=== PATIENT | female | born 1960 | race Caucasian/White ===

== ENCOUNTER 2016-12-29 07:44 | Emergency (ER) | payer BC ==
[2016-12-29 08:04] VITALS: BP 162/88
[2016-12-29] MEDS ORDERED: Naproxen TAB* 250 MG PO ONE (08:21)
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
== END 2016-12-29 08:32 | disposition home or self-care (01) ==
LOC: UCEAST 07:44
DX: S16.1XXA Strain of muscle, fascia and tendon at neck level, initial encounter (principal); R51 Headache; V27.5XXA Motorcycle passenger injured in collision with fixed or stationary object in traffic accident, initial encounter
CPT/HCPCS: 99212; A9270-GY; G0463

== ENCOUNTER 2017-03-21 21:17 | Emergency (ER) | payer BC ==
[2017-03-21] MEDS ORDERED: oxyCODONE/Acetamin 5/325 MG* TAB PO ONE (22:35)
[2017-03-21 23:32] LABS: Hemoglobin 13.5 g/dl (12.0-16.0); Red Blood Count 4.63 10^6/ul (4.0-5.4)
[2017-03-21 23:33] LABS: Hematocrit 41 % (35-47); Mean Corpuscular HGB Conc 33 g/dl (31-36); Mean Corpuscular Hemoglobin 29 pg (27-31); Mean Corpuscular Volume 87 fL (80-97); Mean Platelet Volume 9 um3 (7.4-10.4); Red Cell Distribution Width 13 % (10.5-15)
[2017-03-21 23:46] LABS: Albumin 4.4 g/dL (3.2-5.2); BUN/Creatinine Ratio 9.9 (8-20); Calcium 8.9 mg/dL (8.6-10.3); EGFR African American 110.3 (>60); EGFR Non-African American 85.8 (>60); Globulin 2.9 g/dL (2-4); Potassium 3.5 mmol/L (3.5-5.0); Total Bilirubin 0.4 mg/dL (0.2-1.0); Total Protein 7.3 g/dL (6.4-8.9)
[2017-03-21] MEDS ORDERED: Iohexol 300* (CONTRAST) 10 ML SDV IV ONE (23:58)
--- NOTE | 2017-03-22 01:12 | ED ---
Raza Bowden Alfonso, scribed for Michelet Ellington on 03/21/17 at 2234 . Complex/Multi-Sys Presentation - HPI Summary HPI Summary: This patient is a 56 year old F presenting to [facility] accompanied by family with a chief complaint of right sided facial swelling worsening since 5 days ago. She thinks it is an infection. The CC is described as pruritic. The patient rates the pain 8/10 in severity. Symptoms aggravated and alleviated by nothing. Patient reports bug bites (at her legs), and a headache. She reports she was recently started on a course of Augmentin. She denies any PMHx. - History Of Current Complaint Chief Complaint: EDGeneral Time Seen by Provider: 03/21/17 22:22 Hx Obtained From: Patient Onset/Duration: Sudden Onset, Lasting Days - 5, Worse Since Timing: Constant Severity Currently: Moderate Severity Initially: Moderate Aggravating Factor(s): Nothing Alleviating Factor(s): Nothing Associated Signs And Symptoms: Positive: Other - Patient reports bug bites (at her legs), and a headache. - Allergies/Home Medications Allergies/Adverse Reactions: Allergies Allergy/AdvReac Type Severity Reaction Status Date / Time environmental Allergy Severe sinus Uncoded 03/21/17 21:23 PMH/Surg Hx/FS Hx/Imm Hx Endocrine/Hematology History: Denies: Hx Diabetes, Hx Thyroid Disease Cardiovascular History: Denies: Hx Hypertension, Hx Pacemaker/ICD Respiratory History: Denies: Hx Asthma, Hx Chronic Obstructive Pulmonary Disease (COPD) GI History: Denies: Hx Ulcer Sensory History: Denies: Hx Hearing Aid Psychiatric History: Denies: Hx Panic Disorder - Cancer History Hx Chemotherapy: No Hx Radiation Therapy: No - Surgical History Surgery Procedure, Year, and Place: SInus surgery. Infectious Disease History: No Infectious Disease History: Reports: Traveled Outside the [place] in Last 30 Days - DANIELLE,[place]EREM[place] Denies: Hx Hepatitis, Hx Human Immunodeficiency Virus (HIV), History Other Infectious Disease - Family History Known Family History: Positive: Hypertension - Social History Alcohol Use: Weekly Substance Use Type: Reports: None Smoking Status (MU): Never Smoked Tobacco Review of Systems Positive: Other - Positive right sided facial swelling. Positive: Other - Positive bug bites (at her legs) Positive: Headache All Other Systems Reviewed And Are Negative: Yes Physical Exam Triage Information Reviewed: Yes Vital Signs On Initial Exam: Initial Vitals Temp Pulse Resp BP Pulse Ox 98.5 F 92 18 175/90 100 03/21/17 21:20 03/21/17 21:20 03/21/17 21:20 03/21/17 21:20 03/21/17 21:20 Vital Signs Reviewed: Yes Appearance: Positive: Well-Appearing, No Pain Distress Skin: Positive: Warm, Skin Color Reflects Adequate Perfusion, Dry, Other - Erythema at right sided face. Head/Face: Positive: Normal Head/Face Inspection Eyes: Positive: EOMI, BRITT ENT: Positive: Normal ENT inspection Neck: Positive: Supple, Nontender Respiratory/Lung Sounds: Positive: Clear to Auscultation, Breath Sounds Present Cardiovascular: Positive: RRR, Pulses are Symmetrical in both Upper and Lower Extremities Abdomen Description: Positive: Nontender, Soft Bowel Sounds: Positive: Present Musculoskeletal: Positive: Strength/ROM Intact, Other - Swelling and tenderness at right nostril. Neurological: Positive: Normal, Sensory/Motor Intact, Alert, Oriented to Person Place, Time Diagnostics - Vital Signs Vital Signs Temp Pulse Resp BP Pulse Ox 03/21/17 21:23 98.5 F 92 18 175/90 100 03/21/17 21:20 98.5 F 92 18 175/90 100 - Laboratory Result Diagrams: 03/21/17 22:51 03/21/17 22:51 Lab Statement: Any lab studies that have been ordered have been reviewed, and results considered in the medical decision making process. - CT Maxillofacial CT Interpretation Completed By: Radiologist - Positive for 1.4 cm walled off collection in the right pre-maxillary soft tissues. Likely this represents the known abscess. The collection extends slightly into the right nostril. The remainder of the facial soft tissues are normal. Globes and orbits are normal. The source for the infection/inflammation is not apparent on the scan. The adjacent maxilla and teeth appear intact. Mild mucosal thickening right maxillary sinus. Complex Multi-Symp Course/Dx Assessment/Plan: This patient is a 56 year old F presenting to [facility] accompanied by family with a chief complaint of right sided facial swelling worsening since 5 days ago. She thinks it is an infection. The CC is described as pruritic. The patient rates the pain 8/10 in severity. Symptoms aggravated and alleviated by nothing. Patient reports bug bites (at her legs), and a headache. She reports she was recently started on a course of Augmentin. She denies any PMHx. CT maxillofacial reveals 1.4 cm walled off collection in the right pre-maxillary soft tissues. Likely this represents the known abscess. The collection extends slightly into the right nostril. The remainder of the facial soft tissues are normal. Globes and orbits are normal. The source for the infection/inflammation is not apparent on the scan. The adjacent maxilla and teeth appear intact. Mild mucosal thickening right maxillary sinus. Consulted Dr. Meliton Mistry (ED physician at [place]) at 0050 who accepts the transfer of the patient. Patient will be transferred by ambulance to [facility] with follow up from Dr. Mistry. The patient is agreeable with this plan. - Diagnoses Provider Diagnoses: Facial abscess - Physician Notifications Discussed Care Of Patient With: Dr. Meliton Mistry Time Discussed With Above Provider: 00:50 Instructed by Provider To: Other - Consulted Dr. Meliton Mistry (ED physician at [facility]) at 0050 who accepts the transfer of the patient. Discharge - Discharge Plan Condition: Stable Disposition: TRANS HIGHER LVL OF CARE FAC Referrals: Bismark Moya MD [Primary Care Provider] - 3 Days Raul Barrow MD [Medical Doctor] - 1 Day The documentation as recorded by the Raza matias Alfonso accurately reflects the service I personally performed and the decisions made by , Michelet Ellington.
[2017-03-22 02:09] VITALS: BP 131/79
--- NOTE | 2017-03-22 07:50 | RAD ---
HISTORY: face abscess COMPARISONS: CT of the neck dated June 12, 2006 TECHNIQUE: Multiple contiguous axial CT scans were obtained of the face with intravenous contrast, with coronal and sagittal multiplanar reformations. FINDINGS: BONES: There is no displaced fracture or dislocation. The orbital rim is intact. The zygomatic arch is intact. The pterygoid plates are intact. ORBITS: The globes are round. The optic nerves are symmetric. The extraocular musculature is normal. There is no post septal or intraconal inflammatory change. There is no retrobulbar hematoma. PARANASAL SINUSES: The paranasal sinuses are clear. BRAIN AND SOFT TISSUE: There is a loculated fluid collection along the right upper lobe of the nasolabial fold extending into the right naris, measuring approximately 1.1 x 0.9 x 1.4 cm in size. There is associated inflammatory change of the adjacent soft tissue. OTHER: None. IMPRESSION: 1.4 CM LOCULATED FLUID COLLECTION OF THE FACE ALONG THE RIGHT NASOLABIAL REGION CONSISTENT WITH THE GIVEN HISTORY OF ABSCESS
== END 2017-03-22 02:07 | disposition short-term general hospital (02) ==
LOC: ED 21:17
DX: R51 Headache (principal); L02.01 Cutaneous abscess of face
CPT/HCPCS: 36415; 70487; 80053; 85025; 87040; 99283; A9270-GY; J0690; Q9967

== ENCOUNTER 2017-09-29 12:33 | Emergency (ER) | payer BC, OTHER ==
[2017-09-29 13:54] VITALS: BP 135/87
--- NOTE | 2017-09-29 14:37 | UC ---
Abdominal Pain Female HPI - HPI Summary HPI Summary: last night developed abdomen pain, some nausea no vomiting or diarrhea, no fevers or urinary symptoms--began after eating at [employer] last night - History of Current Complaint Chief Complaint: UCAbdominalPain Stated Complaint: STOMACH/ BACK PAIN Time Seen by Provider: 09/29/17 12:41 Hx Obtained From: Patient ?: No Onset/Duration: Sudden Onset, Lasting Days - 1, Still Present Timing: Constant Severity Initially: Moderate Severity Currently: Moderate Pain Intensity: 8 Pain Scale Used: 0-10 Numeric Location: Diffuse, Discrete At: RUQ Radiates: No Character: Aching, Cramping Aggravating Factor(s): Nothing Alleviating Factor(s): Nothing Associated Signs and Symptoms: Positive: Decreased Appetite, Nausea Allergies/Adverse Reactions: Allergies Allergy/AdvReac Type Severity Reaction Status Date / Time environmental Allergy Severe sinus Uncoded 09/29/17 13:54 Home Medications: Home Medications Omeprazole 20 mg PO 09/29/17 [History] PMH/Surg Hx/FS Hx/Imm Hx Previously Healthy: No GI/ History: Gastroesophageal Reflux - Surgical History Surgical History: Yes Surgery Procedure, Year, and Place: SInus surgery. - Family History Known Family History: Positive: Hypertension - Social History Occupation: Employed Full-time Lives: With Family Alcohol Use: Weekly Substance Use Type: None Smoking Status (MU): Never Smoked Tobacco Review of Systems Constitutional: Negative Skin: Negative Eyes: Negative ENT: Negative Respiratory: Negative Cardiovascular: Negative Gastrointestinal: Abdominal Pain, Nausea Genitourinary: Negative Motor: Negative Neurovascular: Negative Musculoskeletal: Negative Neurological: Negative Psychological: Negative Is Patient Immunocompromised?: No All Other Systems Reviewed And Are Negative: Yes Physical Exam Triage Information Reviewed: Yes Appearance: Well-Appearing, No Pain Distress, Well-Nourished Vital Signs: Initial Vital Signs Temp 96.9 F 09/29/17 13:50 Pulse 123 09/29/17 13:50 Resp 18 09/29/17 13:50 BP 135/87 09/29/17 13:50 Pulse Ox 98 09/29/17 13:50 Vital Signs Reviewed: Yes Eye Exam: Normal Eyes: Positive: Conjunctiva Clear ENT Exam: Normal ENT: Positive: Normal ENT inspection, Hearing grossly normal, Pharynx normal, TMs normal, Uvula midline. Negative: Nasal congestion, Tonsillar swelling, Tonsillar exudate, Trismus, Muffled voice, Hoarse voice, Dental tenderness, Sinus tenderness Dental Exam: Normal Neck exam: Normal Neck: Positive: Supple, Nontender, No Lymphadenopathy Respiratory Exam: Normal Respiratory: Positive: Chest non-tender, Lungs clear, Normal breath sounds, No respiratory distress, No accessory muscle use Cardiovascular Exam: Normal Cardiovascular: Positive: RRR, No Murmur, Pulses Normal, Brisk Capillary Refill Abdominal Exam: Other Abdomen Description: Positive: No Organomegaly, Soft. Negative: CVA Tenderness (R), CVA Tenderness (L), Distended, Guarding, Hepatomegaly, McBurney's Point Tenderness Bowel Sounds: Positive: Hyperactive Musculoskeletal Exam: Normal Musculoskeletal: Positive: Strength Intact, ROM Intact, No Edema Neurological Exam: Normal Neurological: Positive: Alert, Muscle Tone Normal, Fatigued Psychological Exam: Normal Skin Exam: Normal Re-Evaluation - Re-Evaluation First Eval Change: Improved - relief with GI Cocktail Abd Pain Female Course/Dx - Course Course Of Treatment: Restart Prilosec daily 40 mg po qd on empty stomach, diet modification follow with pcp - Differential Dx/Diagnosis Provider Diagnoses: gastritis Discharge - Discharge Plan Condition: Stable Disposition: HOME Prescriptions: Omeprazole CAP* [Prilosec CAP* 20 MG] 40 mg PO BEDTIME #30 cap. Patient Education Materials: Gastritis (ED), Diet for Stomach Ulcers and Gastritis (ED) Referrals: Bismark Moya MD [Primary Care Provider] - 1 Week
[2017-09-29] MEDS ORDERED: Lidocaine 2% VISCOUS* 15 ML UDC PO ONE (14:52)
[2017-09-29] MEDS ORDERED: Al Hydrox/Mg Hydrox/Simet LIQ* 30 ML UDC PO ONE (14:52)
== END 2017-09-29 15:45 | disposition home or self-care (01) ==
LOC: UCEAST 12:33
DX: K29.70 Gastritis, unspecified, without bleeding (principal); R11.0 Nausea; K21.9 Gastro-esophageal reflux disease without esophagitis
CPT/HCPCS: 81003; 87086; 99212; A9270-GY; G0463